=== PATIENT | male | born 1940 | race Caucasian/White ===

== ENCOUNTER 2018-03-06 14:35 | Outpatient (REF) | payer MEDICARE, OTHER, SELFPAY ==
[2018-03-06 22:34] LABS: Bacteria Rare HPF (Negative); C & S Indicated? No; Casts Negative LPF (Negative); Crystals Few Amorphous HPF (Negative); Epithelial Cells Negative HPF (Negative); Mucus Negative (Negative); Other Cells Negative (Negative); RBC Negative (0-2); WBC Negative HPF (0-5)
== END 2018-03-06 14:55 ==
LOC: NCHCN 14:35
PROVIDERS: PCP Family Medicine; Visit Provider Family Medicine
DX: R31.9 Hematuria, unspecified (principal)
CPT/HCPCS: 81015

== ENCOUNTER 2019-03-31 09:35 | Outpatient (REF) | payer MEDICARE, OTHER, SELFPAY ==
[2019-03-31 22:57] LABS: Abs Immature Grans 0.01 k/cumm (0.0-0.09); Absolute Basophil Count 0.01 k/cumm (0.0-0.2); Absolute Eosinophil Count 0.08 k/cumm (0.0-0.7); Absolute Lymphocyte Count 1.57 k/cumm (1.2-3.4); Absolute Monocyte Count 0.58 k/cumm (0.11-0.7); Absolute Neutrophil Count 3.11 k/cumm (1.2-6.7); Basophils % 0.2; Eosinophils % 1.5; HCT 41.5 % (40.0-50.0); HGB 13.6 g/dL (13.5-17.5); Immature Grans % 0.2; Lymphocytes % 29.3; Mean Corp. HGB Concentration 32.8 g/dL (32.0-36.0); Mean Corpuscular Hemoglobin 33.3 pg (27.0-33.0); Mean Corpuscular Volume 101.5 fL (80-95); Mean Platelet Volume 11.5 fL (8.0-11.0); Monocytes % 10.8; Platelet Count 201 x1000/uL (130-400); RBC 4.09 m/cumm (4.50-6.00); RBC Distribution Width 13.8 % (11.8-14.1); White Blood Cell Count 5.36 k/cumm (4.4-10.8)
[2019-03-31 23:08] LABS: ALT 17 U/L (16-63); AST 19 U/L (15-37); Albumin 4.2 g/dL (3.4-5.0); Alkaline Phosphatase 76 U/L (46-116); Anion Gap 6.6 mmol/L (3-11); BUN 12 mg/dL (7-18); CO2 32.4 mmol/L (21.0-32.0); CREATININE 0.71 mg/dL (0.70-1.30); Calcium 9.5 mg/dL (8.5-10.1); Chloride 104 mmol/L (98-107); Glucose 88 mg/dL (74-106); Magnesium 1.8 mg/dL (1.8-2.4); Potassium 4.7 mmol/L (3.5-5.1); Sodium 143 mmol/L (136-145); TSH (W/Ref FT4) 1.72 uIU/mL (0.36-3.74); Total Protein 7.2 g/dL (6.4-8.2)
== END 2019-03-31 09:55 ==
LOC: NCHCN 09:35
PROVIDERS: PCP Family Medicine; Visit Provider Family Medicine
DX: I10 Essential (primary) hypertension (principal); M54.5 Low back pain
CPT/HCPCS: 80053; 83735; 84443; 85025

== ENCOUNTER 2020-03-01 23:20 | Outpatient (REF) | payer MEDICARE, OTHER, SELFPAY ==
--- NOTE | 2020-03-01 14:00 | SKI_PTH ---
PATIENT: Tod Polk LOC: [facility]#:[id number] AGE/SX: 79/M ROOM: RE03/01/[address]: Cheryle Anderson : 1940 BED: DIS: 03/01/2020 SPEC #: [id number] RECD: 03/02/20 12:46 STATUS: MAC REPio #: [id number] CINTHYA: 03/01/20 14:[address]: Cheryle Matos DEPT: Surgical Specimen RECD BY: Sarina Ashraf ENTERED: 03/02/20 12:47 SP TYPE: JUSTINO WILKES DR: Contreras Odell Tissues: 1 - SKIN BIOPSY(SHAVE/PUNCH) Procedures: SKIN LEVEL 4 Comments: [id number]
== END 2020-03-01 23:40 ==
LOC: NCHCN 23:20
PROVIDERS: PCP Family Medicine; Visit Provider Nurse Practitioner Family
DX: L30.8 Other specified dermatitis (principal)
CPT/HCPCS: 88305

== ENCOUNTER 2020-07-26 12:28 | Outpatient (REF) | payer MEDICARE, OTHER, SELFPAY ==
[2020-07-26 13:33] LABS: HCT 38.1 % (40.0-50.0); HGB 12.8 g/dL (13.5-17.5); MCH 33.2 pg (27.0-33.0); MCHC 33.6 % (32.0-36.0); MPV 11.2 fL (8.0-11.0); Platelet Count 196 10^3/uL (130-400); RBC 3.85 10^6/uL (4.36-5.78); RDW 13.3 % (11.8-14.1); RDW-SD 48.6 fL; WBC 4.56 10^3/uL (4.4-10.8)
[2020-07-26 13:42] LABS: ALT 22 U/L (16-63); AST 20 U/L (15-37); Alkaline Phosphatase 95 U/L (46-116); Anion Gap 6.8 mmol/L (3-11); BUN 17 mg/dL (7-18); Bilirubin, Total 0.8 mg/dL (0.2-1.0); CO2 30.2 mmol/L (21.0-32.0); CREATININE 0.7 mg/dL (0.70-1.30); Calcium 9.1 mg/dL (8.5-10.1); Calculated LDL 80 mg/dL (<100); Chloride 108 mmol/L (98-107); Cholesterol 173 mg/dL (<200); Glucose 71 mg/dL (74-106); HDL Cholesterol 85 mg/dL (40-60); Potassium 4.4 mmol/L (3.5-5.1); Sodium 145 mmol/L (136-145); Triglyceride 41 mg/dL (<150)
[2020-07-28 17:43] LABS: Vitamin B12 347 pg/mL (211-911)
== END 2020-07-26 12:29 | disposition home or self-care (01) ==
LOC: NCHCN 12:28
PROVIDERS: PCP Family Medicine; Visit Provider Family Medicine
DX: D53.9 Nutritional anemia, unspecified (principal); E78.5 Hyperlipidemia, unspecified
CPT/HCPCS: 80053; 80061; 85027; 82607

== ENCOUNTER 2021-08-31 20:30 | Outpatient (REF) | payer MEDICARE, SELFPAY ==
[2021-08-31 16:02] LABS: Abs Immature Grans 0.01 10^3/uL (0.0-0.06); Absolute Basophil Count 0.03 10^3/uL (0.0-0.2); Absolute Eosinophil Count 0.16 10^3/uL (0.0-0.7); Absolute Lymphocyte Count 2.17 10^3/uL (1.2-3.4); Absolute Monocyte Count 0.64 10^3/uL (0.1-0.8); Absolute Neutrophil Count 2.81 10^3/uL (1.2-6.7); Basophils % 0.5; Eosinophils % 2.7; HCT 45.8 % (40.0-50.0); HGB 15.1 g/dL (13.5-17.5); Immature Grans % 0.2; Lymphocytes % 37.3; MCH 33.3 pg (27.0-33.0); MCV 101 fL (80-95); MPV 11.2 fL (8.0-11.0); Neutrophils % 48.3; Platelet Count 202 10^3/uL (130-400); RBC 4.53 10^6/uL (4.36-5.78); RDW 13.6 % (11.8-14.1); WBC 5.82 10^3/uL (4.4-10.8)
[2021-08-31 16:53] LABS: ALT 23 U/L (16-63); AST 28 U/L (15-37); Albumin 4.6 g/dL (3.4-5.0); Alkaline Phosphatase 95 U/L (46-116); Anion Gap 8.7 mmol/L (3-11); BUN 15 mg/dL (7-18); Bilirubin, Total 0.6 mg/dL (0.2-1.0); CO2 27.3 mmol/L (21.0-32.0); CREATININE 0.7 mg/dL (0.70-1.30); Calcium 9.1 mg/dL (8.5-10.1); Chloride 107 mmol/L (98-107); Glucose 88 mg/dL (74-106); Potassium 4.8 mmol/L (3.5-5.1); Sodium 143 mmol/L (136-145); Total Protein 7.7 g/dL (6.4-8.2)
== END 2021-08-31 20:31 | disposition home or self-care (01) ==
LOC: NCHCN 20:30
PROVIDERS: PCP Family Medicine; Visit Provider Family Medicine
DX: D53.9 Nutritional anemia, unspecified (principal)
CPT/HCPCS: 80053; 85025

== ENCOUNTER 2022-01-19 17:08 | Outpatient (REF) | payer MEDICARE, OTHER, SELFPAY ==
--- NOTE | 2022-01-19 13:30 | SKI_PTH ---
PATIENT: Tod Polk LOC: [facility]#:[id number] AGE/SX: 81/M ROOM: RE01/19/[address]: Contreras Odell : 1940 BED: DIS: 01/19/2022 SPEC #: [id number] RECD: 01/20/22 12:39 STATUS: MAC REQ #: [id number] CINTHYA: 01/19/22 13:[address]: Contreras Odell DEPT: Surgical Specimen RECD BY: Sarina Ashraf Tissues: 1 - SKIN BIOPSY(SHAVE/PUNCH) Procedures: SKIN LEVEL 4 Comments: [id number]
== END 2022-01-19 17:09 | disposition home or self-care (01) ==
LOC: NCHCN 17:08
PROVIDERS: PCP Family Medicine; Visit Provider Family Medicine
DX: C44.329 Squamous cell carcinoma of skin of other parts of face (principal)
CPT/HCPCS: 88305

== ENCOUNTER 2022-09-05 08:20 | Outpatient (REF) | payer MEDICARE, OTHER, SELFPAY ==
[2022-09-05 15:07] LABS: ALT 20 U/L (16-63); AST 30 U/L (15-37); Alkaline Phosphatase 83 U/L (46-116); BUN 13 mg/dL (7-18); Bilirubin, Total 0.8 mg/dL (0.2-1.0); CREATININE 0.7 mg/dL (0.70-1.30); Calcium 9.4 mg/dL (8.5-10.1); Calculated LDL 74 mg/dL (<100); Chloride 106 mmol/L (98-107); Cholesterol 175 mg/dL (<200); Estimated GFR 91.42 (mL/min/1.73m2); Glucose 93 mg/dL (74-106); HDL Cholesterol 92 mg/dL (40-60); Potassium 4.8 mmol/L (3.5-5.1); Sodium 142 mmol/L (136-145); Total Protein 7.4 g/dL (6.4-8.2); Triglyceride 46 mg/dL (<150)
== END 2022-09-05 08:21 | disposition home or self-care (01) ==
LOC: NCHCN 08:20
PROVIDERS: PCP Family Medicine; Visit Provider Family Medicine
DX: I10 Essential (primary) hypertension (principal); E78.5 Hyperlipidemia, unspecified; D53.9 Nutritional anemia, unspecified
CPT/HCPCS: 80053; 80061

== ENCOUNTER 2023-09-04 08:56 | Outpatient (REF) | payer MEDICARE, OTHER, SELFPAY ==
[2023-09-04 16:04] LABS: HCT 42.4 % (40.0-50.0); HGB 13.6 g/dL (13.5-17.5); MCH 32.9 pg (27.0-33.0); MCHC 32.1 % (32.0-36.0); MCV 103 fL (80-95); MPV 10.9 fL (8.0-11.0); Platelet Count 181 10^3/uL (130-400); RBC 4.13 10^6/uL (4.36-5.78); RDW 13.6 % (11.8-14.1); RDW-SD 52.6 fL; WBC 4.88 10^3/uL (4.4-10.8)
[2023-09-04 16:17] LABS: ALT 19 U/L (16-63); AST 21 U/L (15-37); Albumin 3.9 g/dL (3.4-5.0); Alkaline Phosphatase 77 U/L (46-116); Anion Gap 8.8 mmol/L (3-11); BUN 14 mg/dL (7-18); Bilirubin, Total 0.7 mg/dL (0.2-1.0); CO2 28.2 mmol/L (21.0-32.0); CREATININE 0.8 mg/dL (0.70-1.30); Calcium 9.2 mg/dL (8.5-10.1); Calculated LDL 73 mg/dL (<100); Chloride 107 mmol/L (98-107); Cholesterol 172 mg/dL (<200); Estimated GFR 87.27 (mL/min/1.73m2); Glucose 101 mg/dL (74-106); HDL Cholesterol 91 mg/dL (40-60); Potassium 4.2 mmol/L (3.5-5.1); Sodium 144 mmol/L (136-145); Total Protein 7.2 g/dL (6.4-8.2); Triglyceride 43 mg/dL (<150)
== END 2023-09-04 08:57 | disposition home or self-care (01) ==
LOC: NCHCN 08:56
PROVIDERS: PCP Family Medicine; Visit Provider Family Medicine
DX: D64.9 Anemia, unspecified (principal); I10 Essential (primary) hypertension; E78.5 Hyperlipidemia, unspecified
CPT/HCPCS: 80053; 80061; 85027